=== PATIENT | female | born 1965 | race Caucasian/White ===

== ENCOUNTER 2023-01-05 15:36 | Emergency (ER) | payer OTHER ==
[2023-01-05] MEDS ORDERED: Dextrose 5%-0.9% NaCl 1,000 ML IV SCH (16:15)
[2023-01-05] MEDS ORDERED: Iopamidol 612 MG/ML 100 ML Bottle IVPUSH ONE (16:51)
== END 2023-01-05 18:15 | disposition home or self-care (01) ==
LOC: JD.ED 15:36
DX: S39.012A Strain of muscle, fascia and tendon of lower back, initial encounter (principal); S23.3XXA Sprain of ligaments of thoracic spine, initial encounter; S20.211A Contusion of right front wall of thorax, initial encounter; Z91.040 Latex allergy status; V53.5XXA Driver of pick-up truck or van injured in collision with car, pick-up truck or van in traffic accident, initial encounter; Y92.410 Unspecified street and highway as the place of occurrence of the external cause
CPT/HCPCS: 71260; 72128; 72131; 74177; 80306; 81001; 87086; 96365; 99285; J7042; Q9967; 99284